=== PATIENT | male | born 1955 | race Caucasian/White ===

== ENCOUNTER 2022-10-05 07:08 | Day surgery (SDC) | payer MEDICARE, MEDICAID ==
[~2022-10-05] VITALS: Ht 182.9 cm; Wt 104.6 kg
[2022-10-05 07:27] VITALS: BP 142/97
[2022-10-05] MEDS ORDERED: CYCL-1 PO (07:36)
[2022-10-05] MEDS ORDERED: SENN8.6T19 PO (07:36)
[2022-10-05] MEDS ORDERED: ASPI-1265 PO (07:36)
[2022-10-05] MEDS ORDERED: HYDR-3972 PO (07:36)
[2022-10-05] MEDS ORDERED: NITR100C6 PO (07:36)
[2022-10-05] MEDS ORDERED: DOCU-342 PO (07:36)
[2022-10-05] MEDS ORDERED: ASPI-1397 PO (07:36)
[2022-10-05] MEDS ORDERED: MORP100S7 PO (07:36)
[2022-10-05 08:30] LABS: BASOPHILS # (AUTO) 0.1 X10'3 (0-0.2); EOSINOPHILS # (AUTO) 0.1 X10'3 (0-0.9); HEMOGLOBIN 10.1 g/dl (14.0-17.9); LYMPHOCYTES # (AUTO) 1.5 X10'3 (1.1-4.8); MEAN PLATELET VOLUME 5.7 FL (7.4-10.4)
[2022-10-05 08:32] LABS: EOSINOPHILS % (AUTO) 0.8 % (0-6); HEMATOCRIT 30.6 % (42.0-52.0); LYMPHOCYTES % (AUTO) 21.6 % (21-51); MEAN CORPUSCULAR HEMOGLOBIN 24.5 PG (27.0-31.0); MEAN CORPUSCULAR VOLUME 74.3 FL (78-98); MONOCYTES # (AUTO) 0.4 X10'3 (0-0.9); MONOCYTES % (AUTO) 6.1 % (2-12); NEUTROPHILS % (AUTO) 70.5 % (42-75); PLATELET COUNT 711 X10'3 (140-440); RED BLOOD COUNT 4.12 X10'6 (4.70-6.10); RED CELL DISTRIBUTION WIDTH 19.2 % (11.5-14.5); WHITE BLOOD COUNT 7.2 X10'3 (4.5-11.0)
[2022-10-05] MEDS ORDERED: cefazolin/dext.iso 2gm/100ml 100 ML IV ONE (08:45)
[2022-10-05 09:21] LABS: ANISOCYTOSIS 2+; MICROCYTOSIS 1+; PLATELET ESTIMATE INCREASED
[2022-10-05 09:22] LABS: ELLIPTOCYTES FEW; POLYCHROMASIA FEW; ROULEAUX 1+
== END 2022-10-05 12:45 | disposition home or self-care (01) ==
LOC: SSTAY O 07:08
PROVIDERS: ATTEND Radiology Vascular & Interventional Radiology
DX: N13.5 Crossing vessel and stricture of ureter without hydronephrosis (principal); Z53.8 Procedure and treatment not carried out for other reasons; Z79.899 Other long term (current) drug therapy; Z98.890 Other specified postprocedural states; Z85.46 Personal history of malignant neoplasm of prostate
CPT/HCPCS: 36415; 74018; 85025; J7030; 85008; A4421; A6258